=== PATIENT | female | born 1960 | race Caucasian/White ===

== ENCOUNTER → 2017-07-10 | Outpatient (CLI) | payer OTHER ==
[2017-06-15 11:41] VITALS: BP 122/72
[~2017-07-10] MED LIST: CHOL100013 PO; CRESTOR5 MG PO; ENOX40DI3 SQ; HYDR10TA2 PO; LEVO75TA PO; POLY17PO29 PO
--- NOTE | 2017-07-10 16:21 | RAD ---
CT of the left knee Indication: Left knee fracture repair. Wound nonhealing. Technique: CT of the left lower extremity without IV contrast with multiplanar reformats. Comparison: Plain films from 06/11/2017 Findings: Limited study due to lack of IV contrast. Status post ORIF of proximal multifragment tibial fracture with plates and screws. There is no periprostatic lucency to suggest hardware loosening. The fracture fragments are in near anatomic alignment. The fracture extends to the tibial plateau. There is no evidence of callus formation. No cortical erosion or periosteal reaction to suggest osteomyelitis. Small knee joint effusion. Loose body/fracture fragment is seen in the posterior aspect of the medial tibial plateau. Edema is seen in the prepatellar soft tissue. The Hoffa fat pad is preserved. No abnormal loculated fluid collection in the knee joint. No intramuscular hematoma. Impression: Limited study due to lack of IV contrast. 1. ORIF of proximal tibial fracture with no evidence of callus formation. 2. No periosteal reaction or cortical erosion to suggest osteoarthritis. No fluid collection to suggest abscess. 3. Small bony fragment in the posterior aspect of the medial tibial plateau may represent a displaced intra-articular fracture fragment. PQRS Compliance Statement: One or more of the following individualized dose reduction techniques were utilized for this examination: 1. Automated exposure control 2. Adjustment of the mA and/or kV according to patient size 3. Use of iterative reconstruction technique
== END | disposition home or self-care (01) ==
LOC: CT 12:05
PROVIDERS: ATTEND Orthopaedic Surgery
DX: T84.127A Displacement of internal fixation device of bone of left lower leg, initial encounter (principal); X58.XXXA Exposure to other specified factors, initial encounter; Y93.89 Activity, other specified; Y92.89 Other specified places as the place of occurrence of the external cause; Y99.8 Other external cause status
CPT/HCPCS: 73700

== ENCOUNTER → 2017-07-16 | Outpatient (CLI) | payer OTHER ==
[2017-06-15 11:41] VITALS: BP 122/72
== END | disposition home or self-care (01) ==
LOC: PMGWOUND 13:12
PROVIDERS: ATTEND Emergency Medicine Undersea and Hyperbaric Medicine
DX: T81.31XA Disruption of external operation (surgical) wound, not elsewhere classified, initial encounter (principal); E78.00 Pure hypercholesterolemia, unspecified; G89.29 Other chronic pain; K21.9 Gastro-esophageal reflux disease without esophagitis; E03.9 Hypothyroidism, unspecified; F41.9 Anxiety disorder, unspecified; M81.0 Age-related osteoporosis without current pathological fracture; X58.XXXA Exposure to other specified factors, initial encounter; Y93.89 Activity, other specified; Y99.8 Other external cause status; Y92.89 Other specified places as the place of occurrence of the external cause
CPT/HCPCS: 99214

== ENCOUNTER → 2017-07-23 | Outpatient (CLI) | payer OTHER ==
[2017-06-15 11:41] VITALS: BP 122/72
== END | disposition home or self-care (01) ==
LOC: PMGWOUND 13:36
PROVIDERS: ATTEND Emergency Medicine Undersea and Hyperbaric Medicine
DX: T81.31XD Disruption of external operation (surgical) wound, not elsewhere classified, subsequent encounter (principal); M81.0 Age-related osteoporosis without current pathological fracture; F41.9 Anxiety disorder, unspecified; K21.9 Gastro-esophageal reflux disease without esophagitis; E03.9 Hypothyroidism, unspecified; E78.00 Pure hypercholesterolemia, unspecified; G89.29 Other chronic pain; Y83.8 Other surgical procedures as the cause of abnormal reaction of the patient, or of later complication, without mention of misadventure at the time of the procedure
CPT/HCPCS: 99214

== ENCOUNTER → 2019-08-13 | Outpatient (CLI) | payer OTHER ==
[2017-06-15 11:41] VITALS: BP 122/72
--- NOTE | 2019-08-14 08:08 | RAD ---
CHEST PA LATERAL History: Pneumonia due to infectious organism. Comparison: 02/07/2009 two-view chest x-ray exam. Findings: The cardiomediastinal silhouette is normal. Pulmonary vasculature is normal. The lungs are clear. No pleural effusion or pneumothorax is seen. There is no acute bone abnormality. Large hiatal hernia is present. Fluid level is present within a moderate size hiatal hernia. IMPRESSION: No acute cardiopulmonary process. Hiatal hernia. Electronically signed by: Armando Cali MD (08/14/2019 8:05 AM) [facility]
== END | disposition home or self-care (01) ==
LOC: RAD 16:57
PROVIDERS: ATTEND Family Medicine
DX: K44.9 Diaphragmatic hernia without obstruction or gangrene (principal); J18.9 Pneumonia, unspecified organism
CPT/HCPCS: 71046

== ENCOUNTER → 2019-12-15 | Outpatient (CLI) | payer OTHER ==
[2017-06-15 11:41] VITALS: BP 122/72
[~2019-12-15] MED LIST changes: -LEVO75TA PO; +LEVO75TA90 PO
[2019-12-15 09:10] LABS: HEMATOCRIT 43.5 % (36.0-47.0); HEMOGLOBIN 14.3 g/dL (12.0-15.5); RED BLOOD COUNT 4.9 x10^6/uL (3.50-5.40); WHITE BLOOD COUNT 5.6 x10^3/uL (4.0-11.0)
[2019-12-15 09:25] LABS: ALBUMIN 3.4 g/dL (3.4-5.0); ALBUMIN/GLOBULIN RATIO 0.9 (1.0-1.7); CALCIUM 8.8 mg/dL (8.5-10.1); CREATININE 0.9 mg/dL (0.6-1.0); GFR 63.7; TOTAL BILIRUBIN 0.5 mg/dL (0.2-1.0); TOTAL PROTEIN 7.1 g/dL (6.4-8.2)
[2019-12-15 09:27] LABS: CHOLESTEROL/HDL RATIO 2.5
[2019-12-15 09:33] LABS: FREE T4 1.73 ng/dL (0.76-1.46); THYROID STIM HORMONE (TSH) 0.025 uIU/mL (0.358-3.74)
== END | disposition home or self-care (01) ==
LOC: LAB 08:18
PROVIDERS: ATTEND Family Medicine
DX: E03.9 Hypothyroidism, unspecified (principal); E55.9 Vitamin D deficiency, unspecified; E78.5 Hyperlipidemia, unspecified
CPT/HCPCS: 36415; 80053; 80061; 82306; 84439; 84443; 85027

== ENCOUNTER → 2020-06-23 | Outpatient (CLI) | payer OTHER ==
[2017-06-15 11:41] VITALS: BP 122/72
[2020-06-23 10:02] LABS: ALBUMIN 3.4 g/dL (3.4-5.0); ALBUMIN/GLOBULIN RATIO 0.9 (1.0-1.7); CALCIUM 8.9 mg/dL (8.5-10.1); CREATININE 0.8 mg/dL (0.6-1.0); GFR 72.7; POTASSIUM 3.9 mmol/L (3.5-5.1); TOTAL BILIRUBIN 0.4 mg/dL (0.2-1.0)
[2020-06-23 10:07] LABS: CHOLESTEROL/HDL RATIO 2.5
== END ==
LOC: LAB 08:50
PROVIDERS: ATTEND Family Medicine
DX: E55.9 Vitamin D deficiency, unspecified (principal); E03.9 Hypothyroidism, unspecified; E78.5 Hyperlipidemia, unspecified
CPT/HCPCS: 36415; 80053; 80061; 82306; 84439; 84443

== ENCOUNTER → 2020-11-16 | Outpatient (CLI) | payer OTHER ==
[2017-06-15 11:41] VITALS: BP 122/72
[2020-11-16 13:50] LABS: FREE T4 1.36 ng/dL (0.76-1.46); THYROID STIM HORMONE (TSH) 0.181 uIU/mL (0.358-3.74)
== END ==
LOC: LAB 13:06
PROVIDERS: ATTEND Family Medicine
DX: E03.9 Hypothyroidism, unspecified (principal)
CPT/HCPCS: 36415; 84439; 84443

== ENCOUNTER → 2021-01-05 | Outpatient (CLI) | payer OTHER ==
[2017-06-15 11:41] VITALS: BP 122/72
--- NOTE | 2021-01-05 17:03 | KCIC ---
Bilateral digital screening mammograms with 3-D tomosynthesis: Reason for examination: Routine screening. Comparison is made to previous studies dated back to 05/30/2016. Bilateral mammograms in CC and oblique projections were obtained with 2-D imaging and 3-D tomosynthes is imaging on a Siemens Inspiration unit and reviewed on the workstation. Interpretation was made aissatou keith the benefit of CAD. The skin and nipples show no abnormalities. No abnormal axillary lymph nodes are seen. The breast par enchyma is heterogeneously dense. (Breast density: Category C.) There continues to be a small nodular density posterior laterally at the 9:00 C position of the right breast 10 cm from the nipple which i s stable. There is however some increased nodularity suggested centrally at the retroareolar position of the right breast approximately 7 cm deep to the nipple and in the 5:00 position 8.5 cm from the n ipple. Further evaluation with ultrasound is recommended. The nodularity of the parenchyma in the lef t breast has not shown significant change. There are no other new dominant masses, suspicious calcifi cations or architectural distortion. Benign appearing calcifications are again seen. Impression: Small nodular density seen centrally in the right breast approximately 7 cm deep to the nipple and at the 5:00 position of the right breast approximately 8.5 cm from the nipple. No change in the small c ircumscribed nodule at the 9:00 C position of the right breast located 10 cm from the nipple. Recomme nd further evaluation with ultrasound. Your patient's mammogram demonstrates that she has dense breast tissue (breast density category C or D), which could hide abnormalities, and if she has other risk factors for breast cancer that have bee n identified, she might benefit from supplemental screening tests that may be suggested by you as her ordering physician. Dense breast tissue, in and of itself, is a relatively common condition. Therefo re, this information is not provided to cause undue concern, but rather to raise your awareness and t o promote discussion with your patient regarding the presence of other risk factors, in addition to d ense breast tissue. Your patient's mammography results will be sent to her. BI-RAD Category 0: Incomplete. Needs additional imaging evaluation. "Our facility is accredited by the [employer] Mammography Program." This patient's information has been entered into a reminder system for the patient to be notified wit h the results of her examination and a target date for the next mammogram. Electronically signed by: Kassidy Moy MD (01/05/2021 5:00 PM) [email or web address]
== END ==
LOC: KCIC MAMMO 12:34
PROVIDERS: ATTEND Family Medicine
DX: Z12.31 Encounter for screening mammogram for malignant neoplasm of breast (principal)
CPT/HCPCS: 77063; 77067

== ENCOUNTER → 2021-01-19 | Outpatient (CLI) | payer OTHER ==
[2017-06-15 11:41] VITALS: BP 122/72
--- NOTE | 2021-01-19 13:59 | KCIC ---
Right breast ultrasound: Reason for examination: Small nodules on screening mammogram. Comparison is made to mammographic exam dated 01/05/2021. Ultrasound examination of the right breast and axilla was performed. At the 6:30 position 5 cm from the nipple, there is a 8 x 4.5 mm circumscribed nodule with septations consistent with a fibrocystic lesion with no vascular flow seen. At the 8:30 position 7 cm from the nipple, there is a 9.4 x 1.0 cm circumscribed nodule with septation and lying in parallel orientation consistent with a septated cyst or fibroadenoma. At the 11:30 to 12:00 position, there is some minim al fibrocystic type change present no abnormal appearing lymph nodes are seen in the axilla. IMPRESSION: Small benign-appearing fibrocystic type lesions at the 6:30 and 8:30 positions. No suspicious-appeari ng lesions are seen. Recommend 6 month follow-up with right breast ultrasound. BI-RADS Category 3: Probably Benign. "Our facility is accredited by the [employer] Mammography [employer]." This patient's information has been entered into a reminder system for the patient to be notified wit h the results of her examination and a target date for the next mammogram. Electronically signed by: Kassidy Moy MD (01/19/2021 1:56 PM) [email or web address]
== END ==
LOC: KCIC US 12:58
PROVIDERS: ATTEND Family Medicine
DX: N63.13 Unspecified lump in the right breast, lower outer quadrant (principal)
CPT/HCPCS: 76641

== ENCOUNTER → 2021-05-11 | Outpatient (CLI) | payer OTHER ==
[2017-06-15 11:41] VITALS: BP 122/72
[2021-05-11 09:51] LABS: BASO % 1 % (0-3); EOS # 0.3 x10^3/uL (0.0-0.7); EOS % 5 % (0-3); HEMOGLOBIN 13.7 g/dL (12.0-15.5); LYMPH # 1.2 x10^3/uL (1.0-4.8); LYMPH % 20 % (24-48); MEAN CORPUSCULAR HEMOGLOBIN 30 pg (25-35); MEAN CORPUSCULAR HGB CONC 33 g/dL (31-37); MEAN CORPUSCULAR VOLUME 91 fL (79-100); MONO # 0.6 x10^3/uL (0.0-1.1); MONO % 10 % (0-9); NEUT # 3.9 x10^3/uL (1.8-7.7); NEUT % 64 % (31-73); PLATELET COUNT 281 x10^3/uL (140-400); RED BLOOD COUNT 4.53 x10^6/uL (3.50-5.40); RED CELL DISTRIBUTION WIDTH 14.4 % (11.5-14.5)
[2021-05-11 10:18] LABS: ALBUMIN 3.4 g/dL (3.4-5.0); ALBUMIN/GLOBULIN RATIO 0.9 (1.0-1.7); CALCIUM 9.1 mg/dL (8.5-10.1); POTASSIUM 4.4 mmol/L (3.5-5.1); TOTAL BILIRUBIN 0.5 mg/dL (0.2-1.0); TOTAL PROTEIN 7.3 g/dL (6.4-8.2)
[2021-05-11 10:19] LABS: CHOLESTEROL/HDL RATIO 2.5
[2021-05-11 10:56] LABS: FREE T4 1.34 ng/dL (0.76-1.46); THYROID STIM HORMONE (TSH) 0.304 uIU/mL (0.358-3.74)
== END ==
LOC: LAB 09:30
PROVIDERS: ATTEND Family Medicine
DX: R09.02 Hypoxemia (principal); E03.9 Hypothyroidism, unspecified; E55.9 Vitamin D deficiency, unspecified; E78.5 Hyperlipidemia, unspecified
CPT/HCPCS: 36415; 80053; 80061; 82306; 84439; 84443; 85025

== ENCOUNTER → 2021-05-11 | Outpatient (CLI) | payer OTHER ==
[2017-06-15 11:41] VITALS: BP 122/72
[~2021-05-11] MED LIST changes: +IOHEXOL 300 MG/ML 100ML VIAL. IV ONE
--- NOTE | 2021-05-11 11:16 | KCIC ---
CTA CHEST INDICATION: SOA, dyspnea on exertion, hypoxia. Hx. COVID 3 weeks ago.. Comparison: Chest radiograph 08/13/2019. TECHNIQUE: Following the uneventful administration of intravenous contrast, 100 cc Omnipaque 300, axi al CT sections were obtained through the lungs and upper abdomen. Multiplanar reconstructions and MIP images were obtained. PQRS compliance statement: One or more of the following individualized dose reduction techniques were utilized for this examinat ion: 1. Automated exposure control 2. Adjustment of the mA and/or kV according to patient size 3. Use of iterative reconstruction technique FINDINGS: Pulmonary arteries: No evidence of pulmonary thromboembolic disease Lungs and Airways: Mild right lower lobe centrilobular groundglass nodules and tree-in-bud opacities. No abnormality of the central airways. Pleura: The pleural spaces are normal. Heart and Mediastinum: The visualized thyroid is normal in size and attenuation. No axillary or supra clavicular lymphadenopathy. No mediastinal, hilar or retrocrural lymphadenopathy. The heart and peric ardium are within normal limits. Normal caliber thoracic aorta. Large hiatal hernia containing nearly the entire stomach with organoaxial rotation. Abdomen: Tiny splenic hypodensities, incompletely characterize but may represent cysts or hemangiomas . Calcified hepatic and splenic granulomas. Left hepatic hypodensity with nodular peripheral enhancem ent consistent with hemangioma. Bones and Soft Tissues: Degenerative changes of the spine. IMPRESSION: 1. No evidence of pulmonary thromboembolic disease. 2. Small amount of right lower lobe centrilobular groundglass nodules and tree-in-bud opacities, whic h may represent infectious bronchiolitis or aspiration bronchiolitis. 3. Large hiatal hernia containing nearly the entire stomach with organoaxial rotation. Electronically signed by: Donald Schwarz MD (05/11/2021 11:13 AM) [id number]
== END ==
LOC: KCIC CT 10:08
PROVIDERS: ATTEND Family Medicine
DX: R91.8 Other nonspecific abnormal finding of lung field (principal); K44.9 Diaphragmatic hernia without obstruction or gangrene; K75.3 Granulomatous hepatitis, not elsewhere classified; K76.89 Other specified diseases of liver; M47.819 Spondylosis without myelopathy or radiculopathy, site unspecified; Z86.16 Personal history of COVID-19
CPT/HCPCS: 71275; Q9967

== ENCOUNTER → 2021-05-29 | Outpatient (CLI) | payer OTHER ==
[2017-06-15 11:41] VITALS: BP 122/72
[~2021-05-29] MED LIST changes: -IOHEXOL 300 MG/ML 100ML VIAL. IV ONE
--- NOTE | 2021-05-29 12:00 | KCIC ---
Double contrast upper GI study 05/29/2021 CLINICAL HISTORY: Hiatal hernia. Intermittent difficulty swallowing. TECHNIQUE: A double contrast upper GI study was performed under fluoroscopic control. The total fluor oscopic time is 4 minutes 9 seconds. 16 digital spot radiographs were obtained. FINDINGS: Comparison is made to a CTA scan of the chest dated 04/14/2021. The mucosal pattern of the esophagus, stomach and duodenum is within normal limits. No area of ulcera tion is seen. Esophageal motility is within normal limits. There is a large compound hiatal hernia. T he majority of the stomach is within the inferior mediastinum of the lower chest. Organoaxial rotatio n of the stomach is again seen without evidence of obstruction. Mild to moderate gastroesophageal ref lux is seen to the mid thoracic esophagus. IMPRESSION: 1. Large compound hiatal hernia with organoaxial rotation of the stomach. No obstruction of the flow to contrast is seen. 2. Mild to moderate gastroesophageal reflux. Electronically signed by: Carlo Turcios MD (05/29/2021 11:57 AM) [id number]
== END ==
LOC: KCIC 08:15
PROVIDERS: ATTEND Surgery
DX: K44.9 Diaphragmatic hernia without obstruction or gangrene (principal); K21.9 Gastro-esophageal reflux disease without esophagitis
CPT/HCPCS: 74240

== ENCOUNTER → 2021-07-20 | Outpatient (CLI) | payer OTHER ==
[2017-06-15 11:41] VITALS: BP 122/72
--- NOTE | 2021-07-20 15:16 | KCIC ---
Right breast ultrasound: Reason for examination: Follow-up for nodules. Comparison is made to previous study dated 2020. Ultrasound examination of the right breast and axilla was performed. There continues to be a small 4.7 mm hypoechoic fibrocystic lesion at the 6:30 position 5 cm from the nipple has decreased in size. There continues to be a 9.2 mm hypoechoic circumscribed lesion in para llel orientation at the 8:30 position 7 cm from the nipple which is stable. There also continue to be small subcentimeter hypoechoic fibrocystic type nodules in the 11:30 to 12:00 position which have be nign fibrocystic appearances. No suspicious lesions are seen. No abnormal appearing lymph nodes are s een in the right axilla. IMPRESSION: Continued presence of benign-appearing subcentimeter nodules at the 6:30, 8:30 and 11:30 to 12:00 pos itions. No suspicious abnormalities are seen. Recommend continued 6 month follow-up with ultrasound w hich can be performed at the time of bilateral mammograms. BI-RADS Category 3: Probably Benign. "Our facility is accredited by the [employer] Mammography Program." This patient's information has been entered into a reminder system for the patient to be notified wit h the results of her examination and a target date for the next mammogram. Electronically signed by: Kassidy Moy MD (07/20/2021 3:14 PM) [email or web address]
== END ==
LOC: KCIC US 13:56
PROVIDERS: ATTEND Family Medicine
DX: N63.11 Unspecified lump in the right breast, upper outer quadrant (principal); N64.89 Other specified disorders of breast
CPT/HCPCS: 76641

== ENCOUNTER 2021-09-18 06:19 | Observation (INO) | payer OTHER ==
[~2021-09-18] VITALS: Ht 157.5 cm; Wt 77.5 kg
[2021-09-18] VITALS (9 sets, daily range): BP systolic 123–140; BP diastolic 69–93
[~2021-09-18 06:19] MED LIST changes: +IV RINGERS,LACTATED 1000ML 1,000 ML IV SCH; +fentaNYL PF VIAL 100 MCG/2 ML VIAL IVP PRN
[2021-09-18] MEDS ORDERED: CHOL10004 PO (06:58)
[2021-09-18] MEDS ORDERED: ceFAZolin 2GM PREMIX 2 GM/50 ML BAG IV ONE (07:00)
[2021-09-18] MEDS ORDERED: SURGICEL HEMOSTAT 4X8 EACH. ONE (07:21)
[2021-09-18] MEDS ORDERED: BUPIVACAINE-EPI 0.5% 30 ML VIAL KIT. ONE (07:21)
[2021-09-18] MEDS ORDERED: PROPOFOL 10 MG/ML (20ML) VIAL. IV ONE (07:53)
[2021-09-18] MEDS ORDERED: DEXAMETHASONE SOD PHOS 4 MG/ML VIAL ONE (07:53)
[2021-09-18] MEDS ORDERED: SUCCINYLCHOLINE 200 MG/10 ML VIAL. ONE (07:53)
[2021-09-18] MEDS ORDERED: ONDANSETRON PF 4 MG/2 ML VIAL. ONE (07:53)
[2021-09-18] MEDS ORDERED: LIDOCAINE 2% PF 5 ML VIAL. ONE (07:53)
[2021-09-18] MEDS ORDERED: ROCURONIUM 50 MG/5 ML VIAL. ONE ×2 (07:54→09:25)
[2021-09-18] MEDS ORDERED: fentaNYL PF VIAL 100 MCG/2 ML VIAL ONE ×2 (07:54→12:56)
[2021-09-18] MEDS ORDERED: NEOSTIGMINE METHYLSULFATE 5 MG/5 ML SYRINGE. ONE (07:54)
[2021-09-18] MEDS ORDERED: GLYCOPYRROLATE 1 MG/5 ML VIAL. ONE (07:55)
[2021-09-18] MEDS ORDERED: MIDAZOLAM HCL/PF 2 MG/2 ML VIAL. ONE (07:55)
[2021-09-18] MEDS ORDERED: BUPIVACAINE-EPI 0.5%-1:200000 MPF 30 ML VIAL. INJ ONE (09:27)
[2021-09-18] MEDS ORDERED: HYDROmorphone 2 MG/ML INJ. ONE ×2 (10:40→13:30)
[2021-09-18] MEDS ORDERED: SUGAMMADEX SODIUM 200 MG/2 ML VIAL. IVP ONE (12:00)
--- NOTE | 2021-09-18 12:43 | PDOC4 ---
Operative Note Operative Note Operative Note Preoperative Diagnosis: Large paraesophageal hernia Postoperative Diagnosis: Same Procedure: Laparoscopic repair of large paraesophageal hernia with Billie fundoplication, gastropexy Surgeon: Burton Cobian.: Lane Blanchard MS 4 Anesthesia: Gen. Estimated Blood Loss: 10 mL Specimen: Hernia sac to pathology Drains: None Complications: None Indications: The patient is a 61-year-old female who was referred following the GI evaluation for upper abdominal and lower chest discomfort. Evaluation identified a very large hiatal hernia with the entire stomach present in the chest. She was referred for surgical repair. The risks of surgery were discussed which include bleeding, infection, recurrent herniation, gastric or esophageal perforation, visceral injury, recurrent reflux, gas bloat syndrome, dysphasia, potential need for additional surgeries or procedures. She understands and would like to proceed. Description: The patient was taken to the operating room and placed supine on the operating table. General anesthesia was performed. The patient was then placed in lithotomy. The abdomen was prepped with ChloraPrep and draped in a standard surgical fashion. A small incision was made superior to and to the patient's left of the umbilicus through which a visualized 5 mm trocar was inserted. A pneumoperitoneum was then created and the laparoscope was introduced. In the right lateral abdomen a 12 mm trocar was inserted through which a soft fan retractor was used to elevate the left lobe of the liver. In the right upper quadrant a 5 mm trocar was inserted. In the left upper quadrant an 11 mm trocar was inserted while in the left lateral abdomen a 5 mm trocar was inserted. Attention was then directed to the diaphragmatic hiatus. As expected there was a very large hiatal hernia defect with much all of the stomach and a large amount of omentum in the chest. We began mobilizing the entire hernia sac within the mediastinum. We started this on the right side and began freeing up the sac from the right allison. The Harmonic scalpel assisted for much of this dissection. We continued mobilizing the sac superiorly well into the mediastinum. We continued this dissection anteriorly freeing up the sac and its attachments in this location. The dissection then continued along the left allison and the sac and attachments were mobilized here as well. Due to the large size and redundancy of the sac considerable time was required in freeing this out of the mediastinum. Portions of the redundant sac were also fully excised and sent off to pathology as a specimen. The gastrocolic omentum was then opened with the Harmonic scalpel in the upper portion of the greater curvature. We then freed up the upper part of the greater curvature and fundus using the harmonic scalpel. Large blood vessels were doubly clipped and divided. The dissection continued all the way back up to the left allison and any remaining splenic attachments were also mobilized. At this point the esophagus was readily visualized and we were able to free up the area around his gastroe sophageal junction. A Kj drain was then placed around the esophagus at the GE junction and clips were applied holding the Kj in place. With retraction on the Kj we were able to continue freeing up any remaining sac attachments particularly in the posterior location. At this point the GE junction was well within the abdominal cavity. The left and right allison were then reapproximated with interrupted 2-0 silk sutures using the Endo Stitch device. We elected to reinforce the closure with a Phasix mesh patch. The mesh was tailored to fit the space and a slit was made to accommodate the esophagus. The mesh was then introduced and laid up against the diaphragm and around the esophagus. Initial fixation sutures were placed at the superior corners of the mesh using 2-0 silk. The entire mesh was then fixed to the diaphragm using the Tisseel fibrin glue. The fundus was then wrapped around in a 360 fashion creating the fundoplication. A shoeshine maneuver was used to ensure no twists or kinks. An initial 2-0 Ethibond suture was used securing the fundic lips together. Another suture was placed superior to this which incorporated a small bite of the anterior esophagus. An additional suture was then placed inferiorly completing the fundoplication. At this point hemostasis was good, the hernia was well repaired with good coverage from the biologic mesh, and the fundopli cation was intact with a nice orientation. The fundoplication was then anchored to the left and right allison using interrupted 2-0 Ethibond sutures. Additional sutures were placed in the gastric body anchoring it to the anterior abdominal wall for a gastropexy. The 11 and 12 mm trochars were then removed and the fascia closed with 0 Vicryl using an Endo Close. The remaining ports were removed and the pneumoperitoneum was relieved. Skin at all incisions was closed with 4-0 Monocryl. Steri-Strips and dressings were applied. The patient tolerated the procedure well. SERENA WATERS MD Sep 18, 2021 12:43
[2021-09-18] MEDS ORDERED: IV NORMAL SALINE 1000ML BAG 1,000 ML IV SCH (12:45)
[2021-09-18] MEDS ORDERED: ONDANSETRON PF 4 MG/2 ML VIAL. IVP PRN (12:45)
[2021-09-18] MEDS ORDERED: NALOXONE 0.4 MG/ML VIAL. IV PRN (12:45)
[2021-09-18] MEDS ORDERED: HYDROmorphone 2 MG/ML INJ. IV PRN (12:45)
[2021-09-18] MEDS ORDERED: 0.9 % SODIUM CHLORIDE 10 ML DISP.SYRIN. IV PRN (12:45)
[2021-09-18] MEDS ORDERED: PROCHLORPERAZINE 10 MG/2 ML VIAL. ONE (12:56)
[2021-09-18] MEDS: PROCHLORPERAZINE 10 MG/2 ML VIAL. IV PRN ×2 (13:01→13:44)
[2021-09-18] MEDS: PROCHLORPERAZINE 10 MG/2 ML VIAL. IVP PRN ×2 (13:01→13:44)
[2021-09-18] MEDS ORDERED: MORPHINE SULFATE 2 MG/ML INJ. ONE (13:14)
[2021-09-18] MEDS: MORPHINE SULFATE 2 MG/ML INJ. IVP PRN ×2 (13:21→13:33)
[2021-09-18] MEDS ORDERED: SEVOFLURANE > 120 MINUTES. IH ONE (13:27)
[2021-09-18] MEDS: HYDROmorphone 2 MG/ML INJ. IVP PRN ×3 (13:45→15:06)
[2021-09-18] MEDS: HYDROmorphone 2 MG/ML INJ. IV PRN (19:20)
[2021-09-18] MEDS: IV 1/2 NORMAL SALINE 1,000 ML IV SCH ×2 (21:01→23:16)
[2021-09-19] MEDS: HYDROmorphone 2 MG/ML INJ. IV PRN ×2 (01:15→06:23)
[2021-09-19 03:10] VITALS: BP 124/76
[2021-09-19 06:12] VITALS: BP 143/83
[2021-09-19] MEDS ORDERED: HYDROcodon/APAP 7.5/325MG ORAL 15 ML SOLUTION PO PRN ×2 (08:15→08:30)
[2021-09-19] MEDS: IV 1/2 NORMAL SALINE 1,000 ML IV SCH (09:00)
[2021-09-19 11:00] VITALS: BP 134/85
--- NOTE | 2021-09-19 12:52 | PDOC ---
PROGRESS NOTES Date of Service DATE: 09/19/21 TIME: 12:52 Subjective Subjective doing well, taking liquids well Objective Objective Vital Signs Date Time Temp Pulse Resp B/P (MAP) Pulse Ox O2 Delivery O2 Flow Rate FiO2 09/19/21 11:00 98.3 89 16 134/85 (101) Room Air 98.3 09/19/21 06:53 93 2.0 Intake and Output 09/19/21 07:00 Intake Total 1350 ml Output Total 1360 ml Balance -10 ml Intake Oral 0 ml IV Total 1350 ml Output Urine Total 1350 ml Estimated Blood Loss 10 ml Physical Exam Abdomen: Soft Plan Plan of Care discharge Comment Review of Relevant I have reviewed the following items anjana (where applicable) has been applied. Labs Laboratory Tests Test 09/18/21 06:30 POC SARS CoV-2 Antigen Negative (NEGATIVE) Medications Current Medications Fentanyl Citrate (Fentanyl 2ml Vial) 25 mcg PRN Q5MIN PRN IVP MILD PAIN 1-3; Start 09/18/21 at 06:00; Stop 09/18/21 at 20:00; Status DC Fentanyl Citrate (Fentanyl 2ml Vial) 50 mcg PRN Q5MIN PRN IVP MODERATE PAIN 4-6 Last administered on 09/18/21at 13:01; Start 09/18/21 at 06:00; Stop 09/18/21 at 20:00; Status DC Morphine Sulfate (Morphine Sulfate) 1 mg PRN Q10MIN PRN IVP SEVERE PAIN 7-10 Last administered on 09/18/21at 13:33; Start 09/18/21 at 06:00; Stop 09/18/21 at 20:00; Status DC Ringer's Solution 1,000 ml @ 30 mls/hr Q24H IV Last administered on 09/18/21at 07:01; Start 09/18/21 at 06:00; Stop 09/18/21 at 17:59; Status DC Hydromorphone HCl (Dilaudid) 0.5 mg PRN Q10MIN PRN IVP SEVERE PAIN 7-10, 2nd CHOICE Last administered on 09/18/21at 15:06; Start 09/18/21 at 06:00; Stop 09/18/21 at 20:00; Status DC Prochlorperazine Edisylate (Compazine) 5 mg PACU PRN PRN IVP NAUSEA, MRX1 Last administered on 09/18/21at 13:44; Start 09/18/21 at 06:00; Stop 09/18/21 at 20:00; Status DC Cefazolin Sodium/ Dextrose 50 ml @ 100 mls/hr 1X PREOP PRN IV PRIOR TO PROCE DURE Last administered on 09/18/21at 08:49; Start 09/18/21 at 06:00; Stop 09/18/21 at 18:00; Status DC Bupivacaine HCl/ Epinephrine Bitart (Sensorcain-Epi 0.5%-1:926811 Mpf) 30 ml STK-MED ONCE INJ Last administered on 09/18/21at 09:27; Start 09/18/21 at 09:27; Stop 09/18/21 at 09:56; Status DC Sugammadex Sodium (Bridion) 200 mg 1X ONCE IVP ; Start 09/18/21 at 12:00; Stop 09/18/21 at 12:01; Status DC Sodium Chloride (Normal Saline Flush) 3 ml QSHIFT PRN IV AFTER MEDS AND BLOOD DRAWS; Start 09/18/21 at 12:45 Sodium Chloride 1,000 ml @ 100 mls/hr Q10H IV Last administered on 09/19/21at 09:00; Start 09/18/21 at 13:00 Naloxone HCl (Narcan) 0.4 mg PRN Q2MIN PRN IV SEE INSTRUCTIONS; Start 09/18/21 at 12:45 Sodium Chloride 1,000 ml @ 25 mls/hr Q24H IV ; Start 09/18/21 at 12:45; Status UNV Hydromorphone HCl (Dilaudid) 0.2 mg PRN Q2HR PRN IV MODERATE PAIN; Start 09/18/21 at 12:45 Ondansetron HCl (Zofran) 4 mg PRN Q6HRS PRN IVP NAUESA, 1ST CHOICE; Start 09/18/21 at 12:45 Prochlorperazine Edisylate (Compazine) 5 mg PRN Q6HRS PRN IV N/V, 2nd Choice, MR X1; Start 09/18/21 at 12:45 Hydromorphone HCl (Dilaudid) 0.5 mg PRN Q2HR PRN IV SEVERE PAIN Last adm inistered on 09/19/21at 06:23; Start 09/18/21 at 13:00 Bupivacaine HCl/ Epinephrine Bitart (Sensorcain-Epi 0.5% Kit) 30 ml STK-MED ONCE .ROUTE ; Start 09/18/21 at 07:21; Stop 09/18/21 at 14:56; Status DC Cellulose (Surgicel Hemostat 4x8) 1 each STK-MED ONCE .ROUTE ; Start 09/18/21 at 07:21; Stop 09/18/21 at 14:56; Status DC Lidocaine HCl (Lidocaine Pf 2% Vial) 5 ml STK-MED ONCE .ROUTE ; Start 09/18/21 at 07:53; Stop 09/18/21 at 14:57; Status DC Propofol (Diprivan) 200 mg STK-MED ONCE IV ; Start 09/18/21 at 07:53; Stop 09/18/21 at 14:57; Status DC Ondansetron HCl (Zofran) 4 mg STK-MED ONCE .ROUTE ; Start 09/18/21 at 07:53; Stop 09/18/21 at 14:57; Status DC Dexamethasone Sodium Phosphate (Decadron) 4 mg STK-MED ONCE .ROUTE ; Start 09/18/21 at 07:53; Stop 09/18/21 at 14:57; Status DC Succinylcholine Chloride (Anectine) 200 mg STK-MED ONCE .ROUTE ; Start 09/18/21 at 07:53; Stop 09/18/21 at 14:57; Status DC Neostigmine Underwood (Neostigmine Methylsulfate) 5 mg STK-MED ONCE .ROUTE ; Start 09/18/21 at 07:54; Stop 09/18/21 at 14:57; Status DC Rocuronium Underwood (Zemuron) 50 mg STK-MED ONCE .ROUTE ; Start 09/18/21 at 07:54; Stop 09/18/21 at 14:57; Status DC Fentanyl Citrate (Fentanyl 2ml Vial) 100 mcg STK-MED ONCE .ROUTE ; Start 09/18/21 at 07:54; Stop 09/18/21 at 14:58; Status DC Midazolam HCl (Versed) 2 mg STK-MED ONCE .ROUTE ; Start 09/18/21 at 07:55; Stop 09/18/21 at 14:58; Status DC Glycopyrrolate (Robinul) 1 mg STK-MED ONCE .ROUTE ; Start 09/18/21 at 07:55; Stop 09/18/21 at 14:58; Status DC Rocuronium Underwood (Zemuron) 50 mg STK-MED ONCE .ROUTE ; Start 09/18/21 at 09:25; Stop 09/18/21 at 15:01; Status DC Hydromorphone HCl (Dilaudid) 2 mg STK-MED ONCE .ROUTE ; Start 09/18/21 at 10:40; Stop 09/18/21 at 15:02; Status DC Fentanyl Citrate (Fentanyl 2ml Vial) 100 mcg STK-MED ONCE .ROUTE ; Start 09/18/21 at 12:56; Stop 09/18/21 at 15:04; Status DC Prochlorperazine Edisylate (Compazine) 10 mg STK-MED ONCE .ROUTE ; Start 09/18/21 at 12:56; Stop 09/18/21 at 15:04; Status DC Morphine Sulfate (Morphine Sulfate) 2 mg STK-MED ONCE .ROUTE ; Start 09/18/21 at 13:14; Stop 09/18/21 at 15:04; Status DC Sevoflurane (Ultane) 90 ml STK-MED ONCE IH ; Start 09/18/21 at 13:27; Stop at 15:04; Status DC Hydromorphone HCl (Dilaudid) 2 mg STK-MED ONCE .ROUTE ; Start 09/18/21 at 13:30; Stop 09/18/21 at 15:04; Status DC Acetaminophen/ Hydrocodone Bitart (Lortab 7.5-325/ 15ml Oral Solution) 10 ml PRN Q6HRS PRN PO MODERATE PAIN Last administered on 09/19/21at 09:16; Start 09/19/21 at 08:15 Acetaminophen/ Hydrocodone Bitart (Lortab 7.5-325/ 15ml Oral Solution) 15 ml PRN Q6HRS PRN PO SEVERE PAIN; Start 09/19/21 at 08:30 Active Scripts Active Hydroxyzine Hcl 10 Mg Tablet 10 Mg PO PRN QHS PRN 30 Days Reported Vitamin D3 (Vitamin D) 25 Mcg Tablet 5,000 Units PO 3X/WEEK 1,000 UNITS = 25 MCG Synthroid (Levothyroxine Sodium) 75 Mcg Tablet 1 Tab PO DAILY Crestor (Rosuvastatin Calcium) 5 Mg Tablet 1 Tab PO DAILY Vitals/I & O Vital Sign - Last 24 Hours 09/18/21 09/18/21 09/18/21 09/18/21 13:05 13:23 13:35 13:50 Pulse 86 88 84 86 Resp 14 28 20 13 B/P (MAP) 152/79 149/87 146/86 146/83 Pulse Ox 92 84 87 91 O2 Delivery Simple Mask Nasal Cannula Nasal Cannula Nasal Cannula O2 Flow Rate 8 2 3 3 09/18/21 09/18/21 09/18/21 09/18/21 14:05 14:20 14:50 15:30 Temp 98.7 98.7 Pulse 86 88 92 104 Resp 12 12 19 20 B/P (MAP) 144/82 122/78 129/73 136/90 (105) Pulse Ox 91 90 91 92 O2 Delivery Nasal Cannula Nasal Cannula Nasal Cannula Nasal Cannula O2 Flow Rate 3 3 3 2.0 09/18/21 09/18/21 09/18/21 09/18/21 15:45 16:00 16:06 16:15 Temp 97.9 97.9 Pulse 102 Resp 18 B/P (MAP) 140/88 (105) 135/79 (97) 126/69 (88) Pulse Ox 94 O2 Delivery Nasal Cannula Nasal Cannula Nasal Cannula Nasal Cannula O2 Flow Rate 2.0 2.0 09/18/21 09/18/21 09/18/21 09/18/21 16:45 17:15 18:18 19:20 Temp 98.2 98.0 97.5 98.2 98.0 97.5 Pulse 100 97 95 Resp 18 20 18 B/P (MAP) 139/71 (93) 135/82 (99) 140/85 (103) Pulse Ox 95 94 94 O2 Delivery Nasal Cannula Nasal Cannula Nasal Cannula Room Air O2 Flow Rate 2.0 2.0 2.0 09/18/21 09/18/21 09/18/21 09/18/21 19:50 19:50 22:40 23:00 Temp 98.3 98.3 Pulse 104 Resp 20 B/P (MAP) 133/93 (106) Pulse Ox 94 83 94 O2 Delivery Nasal Cannula Nasal Cannula Room Air Nasal Cannula O2 Flow Rate 2.0 2.0 2.0 2/8/22 09/19/21 09/19/21 09/19/21 01:15 01:45 03:10 06:12 Temp 98.3 98.1 98.3 98.1 Pulse 104 92 Resp 18 20 20 B/P (MAP) 124/76 (92) 143/83 (103) Pulse Ox 94 94 96 93 O2 Delivery Nasal Cannula Nasal Cannula Nasal Cannula Nasal Cannula O2 Flow Rate 2.0 2.0 2.0 2.0 09/19/21 09/19/21 09/19/21 09/19/21 06:23 06:53 08:00 11:00 Temp 98.3 98.3 Pulse 89 Resp 18 18 16 B/P (MAP) 134/85 (101) Pulse Ox 93 93 O2 Delivery Nasal Cannula Nasal Cannula Room Air Room Air O2 Flow Rate 2.0 2.0 Intake and Output 09/18/21 09/18/21 09/19/21 15:00 23:00 07:00 Intake Total 1350 ml 0 ml 0 ml Output Total 410 ml 200 ml 750 ml Balance 940 ml -200 ml -750 ml Justifications for Admission Other Justification SERENA WATERS MD Sep 19, 2021 12:52
[2021-09-19] MEDS ORDERED: HYDR15SO6 PO (12:54)
--- NOTE | 2021-09-19 12:56 | DISCH ---
DISCHARGE INSTRUCTIONS Condition on Discharge Condition on Discharge: Stable Activity After Discharge Activity Instructions for Disc: Other, see below (no lifting over 20 lbs X 2 weeks) Diet after Discharge Diet after Discharge: Full Liquid Wound Incision Care Wound/Incision Care: Other, see below (may remove bandaids and shower, steristrips will fall off on their own) Follow-Up Follow up with: Dr Waters in 2 weeks in office, call for appt [phone] SERENA WATERS MD Sep 19, 2021 12:56
--- NOTE | 2021-09-19 12:57 | PDOC3 ---
Discharge Summary Visit Information Date of Admission: Sep 18, 2021 Date of Discharge: Sep 19, 2021 Admitting Diagnosis: Paraesophageal hernia Final Diagnosis Paraesophageal hernia Brief Hospital Course Allergies Allergies Coded Allergies Type Severity Reaction Last Updated Verified alendronate sodium Allergy Intermediate palpitations 09/13/21 Yes zolpidem Adverse Reaction Severe Anxiety 06/11/17 Yes moxifloxacin Adverse Reaction Intermediate 09/19/21 Yes Vital Signs Vital Signs Date Time Temp Pulse Resp B/P (MAP) Pulse Ox O2 Delivery O2 Flow Rate FiO2 09/19/21 11:00 98.3 89 16 134/85 (101) Room Air 98.3 09/19/21 06:53 93 2.0 Lab Results Laboratory Tests Test 09/18/21 06:30 POC SARS CoV-2 Antigen Negative (NEGATIVE) Brief Hospital Course Ms. Collins is a 61 old female who presented with a large paraesophageal hernia. She underwent surgical repair on 09/18/21. Her postoperative course was uneventful and she was discharged on POD 1. Discharge Information Condition at Discharge: Stable Follow Up: Weeks (2 weeks) Disposition/Orders: D/C to Home Scheduled Cholecalciferol (Vitamin D3) (Vitamin D3 ) 25 Mcg Tablet, 5,000 UNITS PO 3X/WEEK for SUPPLEMENT, (Reported) 1,000 UNITS = 25 MCG Entered as Reported by: REBECCA BENITEZ on 09/18/21657 Last Taken: Unknown Dose on 09/17/21 Last Action: New Order on 09/18/21657 by REBECCA BENITEZ Levothyroxine Sodium (Synthroid) 75 Mcg Tablet, 1 TAB PO DAILY, #30 Ref 5 (Reported) Entered as Reported by: AMARJIT MOSQUERA on 06/11/17603 Last Taken: Unknown Dose on 09/17/21 Last Action: Reviewed on 09/18/21657 by REBECCA BENITEZ Rosuvastatin Calcium (Crestor) 5 Mg Tablet, 1 TAB PO DAILY, #30 Ref 5 (Reported) Entered as Reported by: AMARJIT MOSQUERA on 06/11/17603 Last Taken: Unknown Dose on 09/17/21 Last Action: Reviewed on 09/18/21657 by REBECCA BENITEZ Scheduled PRN Hydrocodone Bit/Acetaminophen (Hydrocodone-Apap 7.5-325/15 Soln ) 15 Ml Solution, 15 ML PO PRN Q6HRS PRN for PAIN for 7 Days, #240 Ref 0 Prescribed by: SERENA WATERS on 09/19/21 1255 Hydroxyzine Hcl (Hydroxyzine Hcl) 10 Mg Tablet, 10 MG PO PRN QHS PRN for insomnia for 30 Days, #90 Prescribed by: SONIA RUBI on 06/14/17 1327 Last Taken: Unknown Dose on 09/17/21 Last Action: Reviewed on 09/18/21 0658 by REBECCA BENITEZ Justicifation of Admission Dx: Justifications for Admission: Justification of Admission Dx: N/A SERENA WATERS MD Sep 19, 2021 12:57
--- NOTE | 2021-09-19 13:48 | NUR ---
dismissed to home with . reviewed diet, fluids, and medication. reviewed restrictions to diet, activity bathing and driving verbalized understanding of these instructions.
--- NOTE | 2021-09-19 17:10 | PATHOLOGY ---
[facility] Accession Number: [id number] . 01 Material submitted: . hernia - HERNIA SAC HIATAL . 01 Clinical history: . LAPROSCOPIC HIATAL HERNIA REPAIR NISSSEN FUNDOPLICATION . 02 Diagnosis: Segments of focal mesothelial-lined fibromembranous and fibroadipose tissue, laparoscopic hiatal hernia repair: - Hernia sac showing focal recent hemorrhage. ([facility]; 09/19/2021) QTP 09/19/2021 1356 Local . 02 Electronically signed: . Eb Higgins MD, Pathologist NPI- [id number] . 01 Gross description: . Fixative: Formalin Labeled: Hernia sac Specimen received: Multiple segments of fibromembranous to fibroadipose tissue Dimensions: 5.5 x 5.2 x 1.5 cm Abnormalities: None identified Submitted representatively in cassette A1. ([facility]; 09/18/2021) [facility] 09/19/2021 1354 Local . 02 Pathologist provided ICD-10: K42.9 . 02 CPT . 406791 Specimen Comment: A courtesy copy of this report has been sent to [phone] Specimen Comment: Report sent to Specimen Comment: A duplicate report has been generated due to demographic updates. Performed at: 01 [facility] [address], [place], [place] [id number] MD Alberto Mcfadden MD Phone: [phone] Performed at: 02 [facility] [address], [place] [id number] MD Eb Higgins MD Phone: [phone]
== END 2021-09-19 13:30 | disposition home or self-care (01) ==
LOC: SURG 06:19 → 4 SOUTHEST 12:43
PROVIDERS: ADMIT Surgery; ATTEND Surgery
DX: K44.9 Diaphragmatic hernia without obstruction or gangrene (principal); Z79.899 Other long term (current) drug therapy
CPT/HCPCS: 43281; 87811; 88302; 96374; 96376; A4314; A4364; A4930; A6219; C1781; G0378; G0379; J0330; J0690; J0780; J1100; J1170; J2250; J2270; J2405; J2704; J2710; J3010; J3490; A4452

== ENCOUNTER → 2021-11-16 | Outpatient (CLI) | payer OTHER ==
[~2021-11-16] MED LIST changes: +CHOL10004 PO; +HYDR15SO6 PO; -IV RINGERS,LACTATED 1000ML 1,000 ML IV SCH; -fentaNYL PF VIAL 100 MCG/2 ML VIAL IVP PRN
[2021-11-16 12:35] LABS: ALBUMIN 3.7 g/dL (3.4-5.0); CREATININE 0.8 mg/dL (0.6-1.0); GFR 72.4; TOTAL BILIRUBIN 0.4 mg/dL (0.2-1.0); TOTAL PROTEIN 7.3 g/dL (6.4-8.2)
[2021-11-16 12:44] LABS: FREE T4 1.48 ng/dL (0.76-1.46); THYROID STIM HORMONE (TSH) 0.141 uIU/mL (0.358-3.74)
== END ==
LOC: LAB 11:55
PROVIDERS: ATTEND Family Medicine
DX: E78.5 Hyperlipidemia, unspecified (principal); E03.9 Hypothyroidism, unspecified
CPT/HCPCS: 36415; 80053; 84439; 84443

== ENCOUNTER → 2021-12-01 | Outpatient (CLI) | payer OTHER ==
--- NOTE | 2021-12-01 12:20 | KCIC ---
CT chest without contrast dated 12/01/2021 COMPARISON: 05/11/2021. INDICATION: Follow-up lung nodule TECHNIQUE: Contiguous axial imaging the chest was performed without the administration of intravenous contrast. One or more of the following individualized dose reduction techniques were utilized for this examinat ion: 1. Automated exposure control 2. Adjustment of the mA and/or kV according to patient size 3. Use of iterative reconstruction technique. FINDINGS: Heart size is upper limits of normal. No pericardial effusion. Ectasia of the ascending thoracic aort a measuring 3.5 cm transverse. No significant coronary calcifications. No mediastinal, hilar or axill wili lymphadenopathy. There are calcified mediastinal and right hilar lymph nodes. Thyroid gland unrem arkable. Central airways are patent. There are a few scattered calcified granuloma. Previously described retic ular nodular opacities in the right lower lobe are no longer apparent. No consolidation or pleural ef fusion. Limited images of the upper abdomen are unremarkable. There has been interval hiatal hernia repair. N o significant bony abnormality. Mild multilevel spondylosis. IMPRESSION: 1. No suspicious pulmonary nodule or mass. The previously described reticular nodular opacities in th e right lower lobe have resolved. 2. Interval hiatal hernia repair. 3. Old granulomatous disease. 4. No new or acute findings. Electronically signed by: Jovani Castañeda MD (12/01/2021 12:18 PM) [facility]
== END ==
LOC: KCIC CT 09:42
PROVIDERS: ATTEND Internal Medicine Critical Care Medicine
DX: R91.1 Solitary pulmonary nodule (principal); I77.810 Thoracic aortic ectasia; R59.0 Localized enlarged lymph nodes; K44.9 Diaphragmatic hernia without obstruction or gangrene; M47.814 Spondylosis without myelopathy or radiculopathy, thoracic region
CPT/HCPCS: 71250

== ENCOUNTER → 2022-01-03 | Outpatient (CLI) | payer OTHER ==
[2022-01-03 15:35] LABS: FREE T4 1.17 ng/dL (0.76-1.46); THYROID STIM HORMONE (TSH) 0.728 uIU/mL (0.358-3.74)
== END ==
LOC: LAB 14:50
PROVIDERS: ATTEND Family Medicine
DX: E03.9 Hypothyroidism, unspecified (principal)
CPT/HCPCS: 36415; 84439; 84443